=== PATIENT | female | born 1945 | race Caucasian/White ===

== ENCOUNTER 2018-02-17 10:55 | Day surgery (SDC) | payer OTHER, MEDICARE ==
[2018-02-17 14:16] VITALS: TEMP 97.8
[2018-02-17 14:53] VITALS: BP 117/81; PULSE 52
--- NOTE | 2018-02-17 16:30 | EKG ---
Test Reason : Blood Pressure : / mmHG Vent. Rate : 054 BPM Atrial Rate : 054 BPM P-R Int : 238 ms QRS Dur : 188 ms QT Int : 542 ms P-R-T Axes : 075 034 -11 degrees QTc Int : 513 ms SINUS BRADYCARDIA WITH SINUS ARRHYTHMIA WITH 1ST DEGREE A-V BLOCK POSSIBLE LEFT ATRIAL ENLARGEMENT RIGHT BUNDLE BRANCH BLOCK SEPTAL INFARCT (CITED ON OR BEFORE 20-NOV-2011) T WAVE ABNORMALITY, CONSIDER INFEROLATERAL ISCHEMIA ABNORMAL ECG WHEN COMPARED WITH ECG OF 20-NOV-2011 08:24, QRS DURATION HAS WIDENED Confirmed by JAMIE SMITH MD ([id number]) on 02/17/2018 4:30:37 PM Referred By: Jamie Smith Confirmed By:JAMIE SMITH MD
== END 2018-02-17 16:00 | disposition home or self-care (01) ==
LOC: JASU-ENDO 10:55
PROVIDERS: ATTEND Internal Medicine Cardiovascular Disease
PROC: 5A2204Z Restoration of Cardiac Rhythm, Single (ICD-10-PCS; principal; 2018-02-17 12:00)
DX: I48.91 Unspecified atrial fibrillation (principal); I10 Essential (primary) hypertension; E78.5 Hyperlipidemia, unspecified; I45.10 Unspecified right bundle-branch block
CPT/HCPCS: 92960; 93005; 93010

== ENCOUNTER 2022-07-10 06:44 | Day surgery (SDC) | payer OTHER, MEDICARE ==
[2022-07-02 13:33] VITALS: BMI 25.6
[2022-07-10] MEDS ORDERED: CELECOXIB 200 MG CAPSULE PO ONE (07:14)
[2022-07-10] MEDS ORDERED: ceFAZolin SODIUM 1 GM VIAL ONE (07:56)
[2022-07-10] MEDS ORDERED: VANCOMYCIN 1,000 MG VIAL (RESTRICTED TO ID ONLY) ONE (07:56)
[2022-07-10] MEDS ORDERED: MIDAZOLAM HCL 2 MG/2 ML SINGLE DOSE VIAL ONE (08:19)
[2022-07-10] MEDS ORDERED: DEXAMETHASONE SOD PHOSPHATE/PF 10 MG/ML SDV ONE (08:25)
[2022-07-10] MEDS ORDERED: ROPIVACAINE HCL 0.5% 30ML VIAL ONE (08:26)
[2022-07-10] MEDS ORDERED: BUPIVACAINE HCL/PF 0.5% (5MG/ML) 10 ML VIAL ONE (08:26)
[2022-07-10] MEDS ORDERED: CEFAZOLIN 2 GM in DEXTROSE 5%-WATER - 50 ML IVPB ONE (08:30)
[2022-07-10] MEDS ORDERED: TRANEXAMIC ACID 1000 MG/10 ML VIAL IVPUSH ONE (09:00)
[2022-07-10] MEDS ORDERED: GENTAMICIN SO4 80 MG/2 ML VIAL ONE (09:38)
[2022-07-10] MEDS ORDERED: ONDANSETRON 4 MG/2 ML VIAL IVPUSH PRN (09:58)
[2022-07-10] MEDS ORDERED: MAG HYDROX/AL HYDROX/SIMETH 30 ML UNIT-DOSE CUP PO PRN (09:58)
[2022-07-10] MEDS ORDERED: PATIENT'S OWN MEDICATION (NON-FORMULARY) (Apremilast [Otezla] 30 MG Tablet) PO SCH (10:00)
[2022-07-10] MEDS ORDERED: RIVAROXABAN 20 MG TABLET PO SCH (10:00)
[2022-07-10] MEDS ORDERED: LACTATED RINGERS SOLUTION 1,000 ML IV SCH (10:00)
[2022-07-10] MEDS ORDERED: AMPICILLIN NA/SULBACTAM NA 1.5 GM VIAL ONE ×2 (10:00→10:17)
[2022-07-10] MEDS ORDERED: ASPIRIN COATED 81 MG TABLET.EC PO SCH (10:00)
[2022-07-10] MEDS ORDERED: TRANEXAMIC ACID 1000 MG/10 ML VIAL ONE (10:08)
[2022-07-10] MEDS ORDERED: DEXAMETHASONE SOD PHOSPHATE 4 MG/1 ML VIAL ONE (10:24)
[2022-07-10] MEDS ORDERED: VANCOMYCIN 1,000 MG VIAL (RESTRICTED TO ID ONLY) IVPB ONE (10:45)
[2022-07-10] MEDS ORDERED: ACETAMINOPHEN 1000 MG/100 ML BAG IVPB ONE (11:20)
[2022-07-10] MEDS ORDERED: oxyCODONE HCL 5 MG TABLET PO PRN ×2 (11:20)
[2022-07-10 14:09] VITALS: RESP 18
[2022-07-10] MEDS ORDERED: CEFAZOLIN SODIUM 2 GM in DEXTROSE 5%-WATER 100 ML IVPB SCH (18:00)
[2022-07-10] MEDS: AMPICILLIN - 2 GM in SODIUM CHLORIDE 100 ML IVPB SCH (18:39)
[2022-07-10] MEDS ORDERED: AMPICILLIN NA IVPB SCH (19:00)
[2022-07-10] MEDS ORDERED: SODIUM CHLORIDE IVPB SCH (19:00)
[2022-07-10] MEDS ORDERED: SULBACTAM NA IVPB SCH (19:00)
[2022-07-10] MEDS: SENNOSIDES/DOCUSATE COMBO (SENNA PLUS) TABLET (UD) PO SCH ×2 (19:57→22:29)
[2022-07-10] MEDS: HYDROCHLOROTHIAZIDE 25 MG TABLET (FP) PO SCH (19:57)
[2022-07-10] MEDS: KETOROLAC TROMETHAMINE 30 MG/1 ML VIAL IVPUSH SCH ×2 (19:58→22:55)
[2022-07-10] MEDS: MULTIVITAMINS (DAILY MVI) TABLET (FP) PO SCH (19:58)
[2022-07-10] MEDS: PANTOPRAZOLE 40 MG TABLET PO SCH (19:58)
[2022-07-10] MEDS ORDERED: ROSUVASTATIN CA 5 MG TABLET PO SCH (22:00)
[2022-07-10] MEDS: ACETAMINOPHEN 500 MG TABLET (FP) PO SCH (22:28)
[2022-07-10] MEDS: METOPROLOL TARTRATE 50 MG TABLET (FP) PO SCH (22:29)
[2022-07-10] MEDS ORDERED: GENTAMICIN INJECTION 90 MG in DEXTROSE 5%-WATER - 250 ML IVPB ONE (23:00)
[2022-07-11] MEDS: AMPICILLIN - 2 GM in SODIUM CHLORIDE 100 ML IVPB SCH (02:24)
[2022-07-11] MEDS: ACETAMINOPHEN 500 MG TABLET (FP) PO SCH ×2 (06:16→11:02)
[2022-07-11] MEDS ORDERED: LEVOTHYROXINE NA 50 MCG TABLET (FP) PO SCH (07:00)
[2022-07-11] MEDS: oxyCODONE HCL 10 MG SUSTAINED ACTING TABLET PO SCH ×2 (07:01→11:04)
[2022-07-11 08:40] LABS: HEMATOCRIT 33.8 % (32.4-45.2); HEMOGLOBIN 11.7 G/dL (10.7-15.3); MCH 34.4 pg (25.7-33.7); MCHC 34.5 g/dl (32.0-36.0); MEAN CELL VOLUME 99.7 fl (80-96); MEAN PLT VOLUME 8.9 fl (7.5-11.1); PLATELET COUNT 238.4 10^3/uL (134-434); RBC 3.39 10^6/uL (3.60-5.2); RDW 12.7 % (11.6-15.6); WHITE BLOOD COUNT 13.2 10^3/uL (4.0-10.8)
[2022-07-11] MEDS ORDERED: LOSARTAN POTASSIUM 50 MG TABLET PO SCH (10:00)
[2022-07-11] MEDS ORDERED: RIVAROXABAN 20 MG TABLET PO SCH (10:00)
[2022-07-11] MEDS ORDERED: ASPIRIN COATED 81 MG TABLET.EC PO SCH (10:00)
[2022-07-11] MEDS: HYDROCHLOROTHIAZIDE 25 MG TABLET (FP) PO SCH (11:03)
[2022-07-11] MEDS: METOPROLOL TARTRATE 50 MG TABLET (FP) PO SCH (11:04)
[2022-07-11] MEDS: SENNOSIDES/DOCUSATE COMBO (SENNA PLUS) TABLET (UD) PO SCH (11:04)
[2022-07-11] MEDS: MULTIVITAMINS (DAILY MVI) TABLET (FP) PO SCH (11:05)
[2022-07-11] MEDS: PANTOPRAZOLE 40 MG TABLET PO SCH (11:05)
[2022-07-11 14:14] VITALS: BP 128/56; PULSE 78; TEMP 98.1
== END 2022-07-11 14:42 | disposition home health service (06) ==
LOC: FASUSAT 06:44 → FM/S 12:59 → FASUSAT 07-11 14:42
PROVIDERS: ATTEND Orthopaedic Surgery
PROC: 8E0Y0CZ Robotic Assisted Procedure of Lower Extremity, Open Approach (ICD-10-PCS; 2022-07-10)
PROC: 0SR90JA Replacement of Right Hip Joint with Synthetic Substitute, Uncemented, Open Approach (ICD-10-PCS; principal; 2022-07-10 10:08)
DX: M16.11 Unilateral primary osteoarthritis, right hip (principal)
CPT/HCPCS: 20985; 27130; C1776; S2900; 36415; 73502-TC-RT-FY; 85027; 88305-TC; 88311-TC; 94760; 97010-GP; 97116-GP; 97162-GP